=== PATIENT | female | born 1935 | race Caucasian/White ===

== ENCOUNTER 2018-06-01 13:18 | Inpatient (IN) | payer MEDICARE, OTHER ==
[~2018-06-01] VITALS: Ht 154.9 cm; Wt 104.5 kg
[~2018-06-01 13:18] MED LIST: CALC600T18 PO; CHOL50004 PO; CLON-527 PO; CRANBERRY PO; CYAN100097 PO; DOCU100C59 PO; DONE10TA37 PO; ESCI10TA54 PO; ESOM40CA PO; FEBU40TA PO; HYDR-3972 PO; LACT1CAP67 PO; LEVO125T69 PO; MAGN500C16 PO; MEMA5TAB PO; MULT-1141 PO; OMEG300C2 PO; QUIN324C PO; SELE200T25 PO; ZOLP10TA5 PO
[2018-06-01] MEDS ORDERED: ondansetron/PF 4mg/2ml inj IV ONE (13:35)
--- NOTE | 2018-06-01 14:00 | NUR ---
placed patient on trendelenberg,1L ns bolus given for low bp.
[2018-06-01 14:04] LABS: BASOPHILS # (AUTO) 0.1 X10'3 (0-0.2); BASOPHILS % (AUTO) 0.5 % (0-1); EOSINOPHILS # (AUTO) 0.2 X10'3 (0-0.9); EOSINOPHILS % (AUTO) 1.9 % (0-6); HEMATOCRIT 34.7 % (35.0-45.0); HEMOGLOBIN 11.2 g/dl (12.0-16.0); LYMPHOCYTES # (AUTO) 3.1 X10'3 (1.1-4.8); LYMPHOCYTES % (AUTO) 24.8 % (21-51); MEAN CORPUSCULAR HEMOGLOBIN 34.3 PG (27.0-31.0); MEAN CORPUSCULAR HGB CONC 32.2 g/dL (33.0-36.5); MEAN CORPUSCULAR VOLUME 106.5 FL (78-98); MEAN PLATELET VOLUME 8.6 FL (7.4-10.4); MONOCYTES # (AUTO) 0.8 X10'3 (0-0.9); MONOCYTES % (AUTO) 6.2 % (2-12); NEUTROPHILS # (AUTO) 8.4 X10'3 (1.8-7.7); NEUTROPHILS % (AUTO) 66.6 % (42-75); PLATELET COUNT 237 X10'3 (140-440); RED BLOOD COUNT 3.26 X10'6 (4.20-5.60); RED CELL DISTRIBUTION WIDTH 13.5 % (11.5-14.5); WHITE BLOOD COUNT 12.6 X10'3 (4.5-11.0)
[2018-06-01] MEDS: morphine 4 MG/ML inj SYRINge IV PRN ×3 (14:07→17:01)
--- NOTE | 2018-06-01 14:07 | NUR ---
tracey care provided,right leg stabilized,3 staff members provided tracey care.spouse present appreciative of care.
--- NOTE | 2018-06-01 14:13 | NUR ---
BP 79/36mmhg Dr. Hill aware,ok'd to give morphine.
[2018-06-01 14:17] LABS: ALANINE AMINOTRANSFERASE 24 U/L (12-78); ALBUMIN 2.5 G/DL (3.4-5.0); ALBUMIN/GLOBULIN RATIO 0.8 (1.1-1.5); ALKALINE PHOSPHATASE 72 IU/L (46-116); ANION GAP 10 (8-16); ASPARTATE AMINO TRANSFERASE 32 U/L (10-37); BILIRUBIN,TOTAL 0.1 MG/DL (0.1-1.0); BLOOD UREA NITROGEN 61 MG/DL (7-18); BUN/CREATININE RATIO 20.8 (6.6-38.0); CALCIUM 10.2 MG/DL (8.5-10.1); CHLORIDE 108 MMOL/L (99-107); CREATININE 2.93 MG/DL (0.40-0.90); GLUCOSE 136 MG/DL (70-104); SODIUM 137 MMOL/L (135-145); TOTAL CARBON DIOXIDE 19.2 MMOL/L (24-32); TOTAL PROTEIN 5.8 G/DL (6.4-8.2); eGFR 15 ML/MIN
--- NOTE | 2018-06-01 14:40 | NUR ---
you cath placed.draining cloudy urine with sediments.
[2018-06-01 14:58] LABS: CLARITY,URINE TURBID (Clear); COLOR,URINE YELLOW (Yellow); GLUCOSE, URINE NEGATIVE (Neg); KETONES,URINE NEGATIVE (Neg); LEUKOCYTE ESTERASE ,URINE LARGE (Neg); NITRITES, URINE NEGATIVE (Neg); OCCULT BLOOD,URINE LARGE (Neg); PROTEIN,URINE 100 mg/dl (Neg); UA COLLECTION TYPE CLN CATCH MIDSTREAM; UROBILINOGEN,URINE 0.2 E.U/dL (0.2-1.0)
--- NOTE | 2018-06-01 14:59 | NUR ---
LEFT MESSAGE WITH ANTONIETA. WAITING FOR RETURN CALL
[2018-06-01 15:02] LABS: BACTERIA,URINE 4+ /HPF (Neg); SQUAMOUS EPITHELIAL CELL,UR NONE SEEN /LPF (FEW); WBC,URINE TNTC /HPF (0-4)
[2018-06-01 15:03] LABS: MUCUS STRANDS NONE SEEN /LPF (Neg); WBC CLUMPS,URINE MANY /HPF (NEGATIVE)
--- NOTE | 2018-06-01 15:08 | NUR ---
dr. harrington at bedside.
[2018-06-01] MEDS ORDERED: HYDROmorphone inj. 0.5 MG/0.5 ML DISP.SYRIN IV ONE (15:15)
--- NOTE | 2018-06-01 15:15 | NUR ---
bp improved 122/[address] Lau still at bedside.family at bedside.
[2018-06-01] MEDS ORDERED: ondansetron/PF 4mg/2ml inj IV PRN (16:20)
[2018-06-01] MEDS ORDERED: magnesium hydroxide 30ml (MOM) UD suspension PO PRN (16:20)
[2018-06-01] MEDS ORDERED: magnesium Cl slow-release 64mg tablet PO PRN (16:20)
[2018-06-01] MEDS ORDERED: mag hydrox/Alum hydrox/simeth 30ml oral suspension PO PRN (16:20)
[2018-06-01] MEDS ORDERED: magnesium 2GM in 50ml NS 50 ML IV PRN (16:20)
[2018-06-01] MEDS ORDERED: acetaminophen 325mg tablet PO PRN (16:20)
[2018-06-01] MEDS ORDERED: potassium Cl 20 mEq SR tablet PO PRN ×2 (16:20)
[2018-06-01] MEDS ORDERED: magnesium 4gm in 100ml NS 100 ML IV PRN (16:20)
[2018-06-01] MEDS ORDERED: potassium Cl 40MEQ/NS 500ml 500 ML IV PRN ×2 (16:20)
[2018-06-01] MEDS: CefTRIAXone/D5W-Rocephin 1gm 50 ML IV SCH (16:25)
[2018-06-01] MEDS ORDERED: normal saline 1000ML IV soln IVB ONE (16:35)
[2018-06-01] MEDS ORDERED: CefTRIAXone 2gm/D5W 50ml 50 ML IV ONE (16:35)
[2018-06-01] MEDS ORDERED: non-formulary drug (Zolpidem Tartrate* (Ambien*) 1 TAB) PO PRN (16:35)
[2018-06-01] MEDS ORDERED: zolpidem 5mg tablet PO PRN (16:55)
[2018-06-01] MEDS ORDERED: CHOL100044 PO (16:58)
[2018-06-01] MEDS ORDERED: CHOLECALCIFEROL 2000 UNIT PO SCH (17:00)
[2018-06-01] MEDS: HYDROcodone/acetaminophen 10/325mg tab PO PRN (17:29)
[2018-06-01 18:00] VITALS: BP 117/59
--- NOTE | 2018-06-01 18:30 | NUR ---
Patient report given to Eloise ANTHONY
--- NOTE | 2018-06-01 19:02 | NUR ---
Patient in room ORTHO 4021. I have received report from GERARD ANTHONY and had the opportunity to ask questions and assume patient care.
[2018-06-01 19:29] LABS: OCCULT BLOOD STOOL POSITIVE (Neg)
[2018-06-01] MEDS: morphine 2 MG/ML inj. syringe IV PRN (20:59)
[2018-06-01] MEDS: memantine 5mg tablet PO SCH (21:08)
[2018-06-01 22:00] VITALS: BP 104/58
[2018-06-02] VITALS (25 sets, daily range): BP systolic 76–146; BP diastolic 33–88
[2018-06-02] MEDS: HYDROcodone/acetaminophen 10/325mg tab PO PRN ×2 (00:36→06:49)
[2018-06-02] MEDS: normal saline 1000ml 1,000 ML IV SCH ×2 (00:55→06:41)
[2018-06-02] MEDS: morphine 2 MG/ML inj. syringe IV PRN ×3 (03:13→22:54)
[2018-06-02 06:34] LABS: BASOPHILS % (AUTO) 0.3 % (0-1); EOSINOPHILS # (AUTO) 0.1 X10'3 (0-0.9); EOSINOPHILS % (AUTO) 0.6 % (0-6); HEMATOCRIT 30.3 % (35.0-45.0); HEMOGLOBIN 9.8 g/dl (12.0-16.0); LYMPHOCYTES # (AUTO) 1.1 X10'3 (1.1-4.8); LYMPHOCYTES % (AUTO) 10.6 % (21-51); MEAN CORPUSCULAR HEMOGLOBIN 35.1 PG (27.0-31.0); MEAN CORPUSCULAR HGB CONC 32.4 g/dL (33.0-36.5); MEAN CORPUSCULAR VOLUME 108.1 FL (78-98); MEAN PLATELET VOLUME 8.3 FL (7.4-10.4); MONOCYTES # (AUTO) 0.9 X10'3 (0-0.9); NEUTROPHILS # (AUTO) 8.7 X10'3 (1.8-7.7); NEUTROPHILS % (AUTO) 80.5 % (42-75); PLATELET COUNT 217 X10'3 (140-440); RED BLOOD COUNT 2.81 X10'6 (4.20-5.60); RED CELL DISTRIBUTION WIDTH 13.8 % (11.5-14.5); WHITE BLOOD COUNT 10.8 X10'3 (4.5-11.0)
--- NOTE | 2018-06-02 06:45 | NUR ---
VERBAL REPORT GIVEN TO KERRI ANTHONY
[2018-06-02 06:52] LABS: ALANINE AMINOTRANSFERASE 22 U/L (12-78); ALBUMIN 2.2 G/DL (3.4-5.0); ALBUMIN/GLOBULIN RATIO 0.7 (1.1-1.5); ALKALINE PHOSPHATASE 63 IU/L (46-116); ANION GAP 11 (8-16); ASPARTATE AMINO TRANSFERASE 43 U/L (10-37); BILIRUBIN,TOTAL 0.1 MG/DL (0.1-1.0); BLOOD UREA NITROGEN 69 MG/DL (7-18); BUN/CREATININE RATIO 18.6 (6.6-38.0); CHLORIDE 110 MMOL/L (99-107); GLUCOSE 99 MG/DL (70-104); MAGNESIUM 1.6 MG/DL (1.5-2.4); POTASSIUM 5.4 MMOL/L (3.5-5.1); SODIUM 138 MMOL/L (135-145); TOTAL CARBON DIOXIDE 16.7 MMOL/L (24-32); TOTAL PROTEIN 5.2 G/DL (6.4-8.2); eGFR 12 ML/MIN
[2018-06-02] MEDS: levoTHYROXINE 112mcg tablet PO SCH (07:00)
[2018-06-02] MEDS: levoTHYROXINE 25mcg tablet PO SCH (07:00)
--- NOTE | 2018-06-02 07:10 | NUR ---
Family member standing at desk, demanding that patient needs more pain medication and asking why she doesn't have bucks traction. Ivanna given 20 minutes ago. Currently researching chart and will page hospitalist.
[2018-06-02] MEDS: pantoprazole 40mg Tablet.DR PO SCH (07:30)
[2018-06-02] MEDS: vitamin D (cholecalciferol) 1,000 unit tablet PO SCH (08:00)
[2018-06-02] MEDS: K and/or MAG REPLACEMENT MC SCH (08:00)
[2018-06-02] MEDS: donepezil 5mg tablet PO SCH (08:00)
[2018-06-02] MEDS ORDERED: LACTOBACILLUS COMBINATION NO 4 PO SCH (08:00)
[2018-06-02] MEDS: ULORIC 40 MG PO SCH (08:00)
[2018-06-02] MEDS: citalopram 20mg tablet PO SCH (08:00)
[2018-06-02] MEDS ORDERED: non-formulary drug (Magnesium Oxide (Magnesium) 250 MG) PO SCH (08:00)
[2018-06-02] MEDS: docusate sod 100mg capsule PO SCH (08:00)
[2018-06-02] MEDS ORDERED: LEVOTHYROXINE SODIUM 137 MCG PO SCH (08:00)
[2018-06-02] MEDS: cyanocobalamin 500mcg tablet PO SCH (08:00)
[2018-06-02] MEDS ORDERED: non-formulary drug (Cholecalciferol (Vitamin D) 2 TAB) PO SCH (08:00)
[2018-06-02] MEDS: memantine 5mg tablet PO SCH ×2 (08:00→20:00)
[2018-06-02] MEDS: lactobacillus rhamnosus 10,000 MMU CELLS/CAPSULE PO SCH (08:00)
[2018-06-02] MEDS ORDERED: non-formulary drug (Donepezil Hcl 10 MG) PO SCH (08:00)
[2018-06-02] MEDS: magnesium oxide 400mg tablet PO SCH (08:00)
[2018-06-02] MEDS ORDERED: non-formulary drug (Esomeprazole Mag Trihydrate* (Nexium*) 1 CAP) PO SCH (08:00)
[2018-06-02] MEDS: CefTRIAXone/D5W-Rocephin 1gm 50 ML IV SCH (11:09)
[2018-06-02] MEDS ORDERED: fentaNYL/PF 50MCG/1 ML 2ML syringe ONE (12:47)
[2018-06-02] MEDS ORDERED: MIDAZolam 5mg/5ml vial ONE (12:47)
[2018-06-02 13:22] LABS: PARTIAL THROMBOPLASTIN TIME 24 SECONDS (22-32)
[2018-06-02] MEDS ORDERED: ceFAZolin 1000mg inj ONE ×2 (13:38)
[2018-06-02] MEDS ORDERED: ePHEDrine 50MG/ML INJ. ONE (13:40)
[2018-06-02] MEDS ORDERED: morphine 4 MG/ML inj SYRINge IV PRN ×2 (13:45)
[2018-06-02] MEDS ORDERED: ondansetron/PF 4mg/2ml inj IV PRN (13:45)
[2018-06-02] MEDS ORDERED: proCHLORperazine 10 MG/2 ml inj IV PRN (13:45)
[2018-06-02] MEDS ORDERED: ringers solution, lacted 1,000 ML IV SCH (13:45)
[2018-06-02 13:50] LABS: ISTAT CREATININE 3.5 mg/dL (0.6-1.1); ISTAT HGB 8.8 g/dl (12.0-16.0); ISTAT IONIZED CALCIUM 1.26 mmol/L (1.03-1.32); ISTAT K 4.7 mmol/L (3.5-5.1); POC BUN/CREATININE RATIO 15.1 (6.6-38.0)
--- NOTE | 2018-06-02 14:45 | NUR ---
Received from OR via ORTHO BED, accompanied by Anesthesiologist DR. PARRY and report given by Anesthesiolgist. PT ARRIVED SLEEPY BUT TALKING. O2 VIA MASK AT 10L IN PLACE. SPINAL SENSATION AT LOW ABD AREA. DRESSING TO RT THIGH CDI. SCDS IN PLACE, FC NOTED WITH CLEAR YELLOW URINE. PULSES WNL T/O. BP LOW, DR PARRY IS AWARE. FEET ELEVATED, IV NS BOLUS BAGAN PER BESIDE ORDER OF DR. PARRY. DR. PARRY ORDERED 2 UNITS PRBC TO BE TRANSFUSED WITH LASIX BETWEEN UNITS.
--- NOTE | 2018-06-02 15:25 | NUR ---
1ST UNIT PRBC STARTED.
--- NOTE | 2018-06-02 15:40 | NUR ---
NO TRANSFUSION RX NOTED AT 15 MINS
--- NOTE | 2018-06-02 15:55 | NUR ---
Report called to receiving nurse KERRI ANTHONY. Transferred via ORTHO BED TO ROOM 4021A NO Belongings WERE BROUGHT TO THE RR. MULTIPLE FAMILY MEMBERS WERE WAITING FOR PT IN TUCKER ENROUTE TO ROOM. Special Issues communicated to receiving nurse. VSS ON 3L NS
--- NOTE | 2018-06-02 17:00 | NUR ---
Placed non re breather at 15L. Patient is shaking, low saturation to 58%. Called for Talha villafuerte. Close 1:1 monitoring for 1 hour.
[2018-06-02] MEDS ORDERED: furosemide 40mg/4ml inj IV ONE (17:05)
--- NOTE | 2018-06-02 18:00 | NUR ---
Morphine given for pain, turned patient to remove extra linen, boost and head of bed up 30 degrees. and 1 daughter at bedside, request earlier that other family stop coming to visit as patient is exhausted and requiring more nursing attention at this time.
[2018-06-02] MEDS: clonazePAM 1mg tablet PO PRN (18:07)
[2018-06-02] MEDS: ceFAZolin 1GM/D5W- ADD-VANTAGE 50 ML IV SCH (19:19)
[2018-06-03] VITALS: BP 124/81
[2018-06-03 00:52] VITALS: BP 121/78
[2018-06-03] MEDS: ceFAZolin 1GM/D5W- ADD-VANTAGE 50 ML IV SCH ×3 (03:28→17:16)
[2018-06-03] MEDS: HYDROcodone/acetaminophen 10/325mg tab PO PRN ×4 (05:33→20:31)
[2018-06-03 06:00] VITALS: BP 102/52
--- NOTE | 2018-06-03 06:06 | NUR ---
REPORT TO EARLY SHIFT RN
[2018-06-03 06:27] LABS: BASOPHILS % (AUTO) 0.3 % (0-1); EOSINOPHILS # (AUTO) 0.1 X10'3 (0-0.9); EOSINOPHILS % (AUTO) 1.2 % (0-6); HEMATOCRIT 30.1 % (35.0-45.0); HEMOGLOBIN 10.3 g/dl (12.0-16.0); LYMPHOCYTES # (AUTO) 0.4 X10'3 (1.1-4.8); LYMPHOCYTES % (AUTO) 3.9 % (21-51); MEAN CORPUSCULAR HEMOGLOBIN 33.5 PG (27.0-31.0); MEAN CORPUSCULAR HGB CONC 34.1 g/dL (33.0-36.5); MEAN CORPUSCULAR VOLUME 98.3 FL (78-98); MEAN PLATELET VOLUME 8.2 FL (7.4-10.4); MONOCYTES # (AUTO) 0.6 X10'3 (0-0.9); MONOCYTES % (AUTO) 5.8 % (2-12); NEUTROPHILS # (AUTO) 8.8 X10'3 (1.8-7.7); NEUTROPHILS % (AUTO) 88.8 % (42-75); PLATELET COUNT 163 X10'3 (140-440); RED BLOOD COUNT 3.07 X10'6 (4.20-5.60); RED CELL DISTRIBUTION WIDTH 18.3 % (11.5-14.5); WHITE BLOOD COUNT 9.9 X10'3 (4.5-11.0)
[2018-06-03 06:43] LABS: ALANINE AMINOTRANSFERASE 22 U/L (12-78); ALBUMIN 2.1 G/DL (3.4-5.0); ALBUMIN/GLOBULIN RATIO 0.7 (1.1-1.5); ALKALINE PHOSPHATASE 57 IU/L (46-116); ANION GAP 11 (8-16); ASPARTATE AMINO TRANSFERASE 46 U/L (10-37); BILIRUBIN,TOTAL 0.4 MG/DL (0.1-1.0); BLOOD UREA NITROGEN 58 MG/DL (7-18); BUN/CREATININE RATIO 19.2 (6.6-38.0); CALCIUM 8.8 MG/DL (8.5-10.1); CHLORIDE 112 MMOL/L (99-107); CREATININE 3.02 MG/DL (0.40-0.90); GLUCOSE 93 MG/DL (70-104); MAGNESIUM 1.3 MG/DL (1.5-2.4); POTASSIUM 4.9 MMOL/L (3.5-5.1); SODIUM 141 MMOL/L (135-145); TOTAL CARBON DIOXIDE 17.7 MMOL/L (24-32); TOTAL PROTEIN 5.1 G/DL (6.4-8.2); eGFR 15 ML/MIN
[2018-06-03] MEDS: K and/or MAG REPLACEMENT MC SCH (08:00)
[2018-06-03] MEDS: ULORIC 40 MG PO SCH (08:00)
[2018-06-03] MEDS: levoTHYROXINE 112mcg tablet PO SCH (09:17)
[2018-06-03] MEDS: levoTHYROXINE 25mcg tablet PO SCH (09:17)
[2018-06-03] MEDS: donepezil 5mg tablet PO SCH (09:18)
[2018-06-03] MEDS: docusate sod 100mg capsule PO SCH (09:18)
[2018-06-03] MEDS: citalopram 20mg tablet PO SCH (09:18)
[2018-06-03] MEDS: pantoprazole 40mg Tablet.DR PO SCH (09:18)
[2018-06-03] MEDS: magnesium oxide 400mg tablet PO SCH (09:19)
[2018-06-03] MEDS: lactobacillus rhamnosus 10,000 MMU CELLS/CAPSULE PO SCH (09:19)
[2018-06-03] MEDS: cyanocobalamin 500mcg tablet PO SCH (09:19)
[2018-06-03] MEDS: memantine 5mg tablet PO SCH ×2 (09:19→20:31)
[2018-06-03] MEDS: vitamin D (cholecalciferol) 1,000 unit tablet PO SCH (09:20)
[2018-06-03] MEDS: morphine 2 MG/ML inj. syringe IV PRN ×2 (09:20→21:49)
[2018-06-03] MEDS: clonazePAM 1mg tablet PO PRN ×2 (09:20→21:49)
[2018-06-03] MEDS: enoxaparin 40mg/0.4ml syringe SQ SCH (09:26)
--- NOTE | 2018-06-03 09:39 | NUR ---
pupils unequal due to cataract surgery Addendum: 06/03/18 at 0945 by Brielle SHOEMAKER Amended: Links added.
[2018-06-03 10:00] VITALS: BP 98/58
[2018-06-03] MEDS: CefTRIAXone/D5W-Rocephin 1gm 50 ML IV SCH (11:18)
[2018-06-03] MEDS: normal saline 1000ml 1,000 ML IV SCH ×2 (13:37→16:36)
--- NOTE | 2018-06-03 15:57 | NUR ---
Medium brown BM Addendum: 06/03/18 at 1557 by Brielle SHOEMAKER Amended: Links added.
[2018-06-03 18:00] VITALS: BP 113/36
--- NOTE | 2018-06-03 18:30 | NUR ---
Received report from Chrissy ANTHONY, assumed care of patient.
--- NOTE | 2018-06-03 18:43 | NUR ---
Problems reprioritized. Patient report given, questions answered & plan of care reviewed with Yaneli Harrison RN. Student documentation: I have reviewed and agree with all interventions, assessments performed and documented by Brielle QUILES. Student Medication Administration: For this medication-pass time frame, all medication were reviewed, dispensed, administered and documented per hospital policy by Brielle QUILES.
[2018-06-03 22:00] VITALS: BP 112/72
[2018-06-04 06:00] VITALS: BP 102/60
[2018-06-04 06:18] LABS: BASOPHILS % (AUTO) 0.3 % (0-1); EOSINOPHILS # (AUTO) 0.2 X10'3 (0-0.9); EOSINOPHILS % (AUTO) 2.1 % (0-6); HEMATOCRIT 31.7 % (35.0-45.0); HEMOGLOBIN 10.3 g/dl (12.0-16.0); LYMPHOCYTES # (AUTO) 0.5 X10'3 (1.1-4.8); LYMPHOCYTES % (AUTO) 3.8 % (21-51); MEAN CORPUSCULAR HEMOGLOBIN 32.8 PG (27.0-31.0); MEAN CORPUSCULAR HGB CONC 32.6 g/dL (33.0-36.5); MEAN CORPUSCULAR VOLUME 100.8 FL (78-98); MONOCYTES # (AUTO) 0.6 X10'3 (0-0.9); MONOCYTES % (AUTO) 5.3 % (2-12); NEUTROPHILS # (AUTO) 10.6 X10'3 (1.8-7.7); NEUTROPHILS % (AUTO) 88.5 % (42-75); PLATELET COUNT 149 X10'3 (140-440); RED BLOOD COUNT 3.15 X10'6 (4.20-5.60)
--- NOTE | 2018-06-04 06:27 | NUR ---
Report given Jaqueline ANTHONY.
[2018-06-04 06:35] LABS: ALANINE AMINOTRANSFERASE 13 U/L (12-78); ALBUMIN 1.9 G/DL (3.4-5.0); ALBUMIN/GLOBULIN RATIO 0.6 (1.1-1.5); ALKALINE PHOSPHATASE 79 IU/L (46-116); ANION GAP 10 (8-16); ASPARTATE AMINO TRANSFERASE 39 U/L (10-37); BILIRUBIN,TOTAL 0.2 MG/DL (0.1-1.0); BLOOD UREA NITROGEN 50 MG/DL (7-18); BUN/CREATININE RATIO 21.8 (6.6-38.0); CALCIUM 9.5 MG/DL (8.5-10.1); CHLORIDE 111 MMOL/L (99-107); CREATININE 2.29 MG/DL (0.40-0.90); GLUCOSE 83 MG/DL (70-104); MAGNESIUM 1.4 MG/DL (1.5-2.4); POTASSIUM 4.8 MMOL/L (3.5-5.1); SODIUM 139 MMOL/L (135-145); TOTAL CARBON DIOXIDE 17.9 MMOL/L (24-32); TOTAL PROTEIN 5.1 G/DL (6.4-8.2); eGFR 20 ML/MIN
[2018-06-04] MEDS: morphine 2 MG/ML inj. syringe IV PRN (06:44)
[2018-06-04] MEDS: normal saline 1000ml 1,000 ML IV SCH (06:55)
[2018-06-04] MEDS: levoTHYROXINE 25mcg tablet PO SCH (07:30)
[2018-06-04] MEDS: pantoprazole 40mg Tablet.DR PO SCH (07:30)
[2018-06-04] MEDS: levoTHYROXINE 112mcg tablet PO SCH (07:30)
[2018-06-04] MEDS: K and/or MAG REPLACEMENT MC SCH (08:00)
[2018-06-04] MEDS: ULORIC 40 MG PO SCH (08:00)
[2018-06-04] MEDS: CefTRIAXone/D5W-Rocephin 1gm 50 ML IV SCH (08:44)
[2018-06-04] MEDS: donepezil 5mg tablet PO SCH (08:45)
[2018-06-04] MEDS: lactobacillus rhamnosus 10,000 MMU CELLS/CAPSULE PO SCH (08:45)
[2018-06-04] MEDS: docusate sod 100mg capsule PO SCH (08:45)
[2018-06-04] MEDS: citalopram 20mg tablet PO SCH (08:45)
[2018-06-04] MEDS: enoxaparin 40mg/0.4ml syringe SQ SCH (08:46)
[2018-06-04] MEDS: cyanocobalamin 500mcg tablet PO SCH (08:46)
[2018-06-04] MEDS: vitamin D (cholecalciferol) 1,000 unit tablet PO SCH (08:46)
[2018-06-04] MEDS: memantine 5mg tablet PO SCH (08:48)
[2018-06-04] MEDS: magnesium oxide 400mg tablet PO SCH (08:48)
[2018-06-04] MEDS: HYDROcodone/acetaminophen 10/325mg tab PO PRN ×3 (09:06→13:12)
[2018-06-04 10:00] VITALS: BP 113/44
--- NOTE | 2018-06-04 13:50 | NUR ---
Received discharge orders for pt to transfer to [facility] for rehab. Saline lock in RFA dc'd with cannula intact. No redness/swelling at IV site. Bandaid applied to RFA. Pt to transfer to [facility]CU with you cath as she is on Palliative Care. Pt pre-medicated for pain for transfer at 1300 with no c/o pain at this time. at bedside. Pt transferred to [facility] and transported by Arabella Cargo to [facility] at 1400.
[2018-06-05] MEDS ORDERED: enoxaparin 30mg/0.3ml syringe SUBCUT SCH (08:00)
== END 2018-06-04 14:35 | DRG 853 ==
LOC: ER 13:18 → ORTHO 4S 17:28 → CMPBEDREQ 06-02 01:26
PROVIDERS: ADMIT Internal Medicine; ATTEND Internal Medicine
PROC: 30233N1 Transfusion of Nonautologous Red Blood Cells into Peripheral Vein, Percutaneous Approach (ICD-10-PCS; 2018-06-02)
PROC: 0QSB06Z Reposition Right Lower Femur with Intramedullary Internal Fixation Device, Open Approach (ICD-10-PCS; principal; 2018-06-02 12:32)
DX: A41.9 Sepsis, unspecified organism (principal); E43 Unspecified severe protein-calorie malnutrition; S72.491A Other fracture of lower end of right femur, initial encounter for closed fracture; N39.0 Urinary tract infection, site not specified; Z68.41 Body mass index [BMI] 40.0-44.9, adult; M97.11XA Periprosthetic fracture around internal prosthetic right knee joint, initial encounter; N17.9 Acute kidney failure, unspecified; E66.01 Morbid (severe) obesity due to excess calories; B96.20 Unspecified Escherichia coli [E. coli] as the cause of diseases classified elsewhere; W18.39XA Other fall on same level, initial encounter; E03.9 Hypothyroidism, unspecified; F03.90 Unspecified dementia, unspecified severity, without behavioral disturbance, psychotic disturbance, mood disturbance, and anxiety; F32.9 Major depressive disorder, single episode, unspecified; G89.29 Other chronic pain; M54.9 Dorsalgia, unspecified; I10 Essential (primary) hypertension; F41.9 Anxiety disorder, unspecified; M47.819 Spondylosis without myelopathy or radiculopathy, site unspecified; Z66 Do not resuscitate; Z51.5 Encounter for palliative care; Z96.651 Presence of right artificial knee joint; Z91.011 Allergy to milk products; Z79.899 Other long term (current) drug therapy; Y93.89 Activity, other specified; Y92.009 Unspecified place in unspecified non-institutional (private) residence as the place of occurrence of the external cause; Y99.8 Other external cause status
CPT/HCPCS: 36415; 71045; 72170; 73552; 73560; 76000; 80047; 80053; 81001; 82272; 83735; 85025; 85610; 85730; 86885; 86900; 86901; 86920; 87070; 87077; 87088; 87186; 93005; 96365; 96375; 97110; 97161; 97530; 99285; A6222; A6449; A7000; C1713; G0378; J0690; J0696; J1170; J1644; J1650; J1940; J2250; J2270; J2405; J3010; J7030; J7120; P9016